=== PATIENT | male | born 1985 | race Caucasian/White ===

== ENCOUNTER 2023-10-26 07:38 | Inpatient (IN) | payer SELFPAY ==
[2023-10-26 07:42] VITALS: BP 151/98; PULSE 105; RESP 18; TEMP 36.6; O2SAT 97; BMI 24.7
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
[2023-10-26 08:58] LABS: Basophils # 0.1 10^3/uL (0.0-0.1); Basophils % 0.8 %; Eosinophils # 0.1 10^3/uL (0.0-0.8); Eosinophils % 1.2 %; Hematocrit 51.8 % (37-53); Lymphocytes # 1.7 10^3/uL (0.8-4.8); Lymphocytes % 14.7 %; Mean Corpuscular HGB Conc 34.2 g/dL (30-55); Mean Corpuscular Hemoglobin 30.4 pg (27-33); Monocytes # 0.6 10^3/uL (0.2-0.9); Monocytes % 5.2 %; Neutrophils # 9.19 10^3/uL (1.8-7.7); Neutrophils % 77.8 %; Nucleated Red Blood Cells % 0 %; Platelet Count 260 10^3/cmm (157-399); Red Blood Count 5.82 10^6/uL (3.85-5.65); Red Cell Distribution Width 13.5 % (12.1-15.1); White Blood Count 11.82 10^3/uL (3.29-11.43)
[2023-10-26 09:15] LABS: Alanine Aminotransferase 26 U/L (0-41); Albumin Level 4.6 g/dL (3.5-5.2); Alkaline Phosphatase 68 U/L (40-130); Aspartate Amino Transferase 34 U/L (0-40); Blood Urea Nitrogen 15 mg/dL (6-20); Calcium 9.5 mg/dL (8.5-10.5); Carbon Dioxide 20 mmol/L (22-29); Chloride 97 mmol/L (98-107); Creatinine Clr Calc Pharmacy 113.2165; Globulin 3.3 g/dL (1.3-4.6); Glomerular Filtration Rate 108.2 mL/min (90-130); Glucose 85 mg/dL (65-115); Osmolality Calculated 276 mOsm/kg (285-295); Sodium 133 mmol/L (136-145); Total Bilirubin 0.8 mg/dL (0.15-1.2); Total Protein 7.9 g/dL (6.6-8.7)
[2023-10-26 09:18] LABS: Acetaminophen < 5.0 ug/mL (10-30); Alcohol Level < 10 mg/dL (0-10); Anion Gap 19.9 (5-19); Potassium 3.9 mmol/L (3.5-5.1); Salicylate < 0.3 mg/dL (3-10)
[2023-10-26 09:49] LABS: Add Urine Microscopic? NO; Charge for UA Resulting for Rev
[2023-10-26 09:54] LABS: Bilirubin Urine Neg (Negative); Blood Urine Neg (Negative); Glucose Urine UA Norm (Normal); Ketones Urine 2+ (Negative); Leukocyte Esterase Urine Negative (Negative); Nitrate Urine Negative (Negative); Protein Urine Neg (Negative); Urine Appearance Clear (CLEAR); Urine Color Yellow (Yellow); Urobilinogen Urine Norm (Negative); pH Urine 7 (5-7)
[2023-10-26 10:02] LABS: Amphetamines Screen Urine Negative (Negative); Barbiturates Screen Urine Negative (Negative); Benzodiazepines Screen Urine Negative (Negative); Cocaine Screen Urine Negative (Negative); Opiate Screen Urine Negative (Negative); PCP Screen Urine Negative (Negative); THC Screen Urine Negative (Negative)
--- NOTE | 2023-10-26 10:06 | ECG_ITS ---
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 Measurements Intervals [place] Rate: 88 P: 48 W[place]: 139 QRS: 72 QRSD: 77 T: 56 QT: 362 QTc: 438 Interpretive Statements SINUS RHYTHM Compared to ECG 09/26/2017 14:51:42 No significant changes Electronically Signed On 10-26-2023 15:24:50 CDT by Kyle Mitchell M.D. [email or web address]
[2023-10-26 10:50] VITALS: BP 145/90; PULSE 74; RESP 20; TEMP 36.6; O2SAT 97
[2023-10-26 10:52] VITALS: BMI 24.7
[2023-10-26] MEDS: hyDROXYzine 25 mg Capsule 50 MG PO (11:24)
[2023-10-26] MEDS: nicotine 4 mg lozenge MUCOUS MEM ×3 (11:24→19:30)
[2023-10-26 14:00] VITALS: BP 118/76; PULSE 92; RESP 20; TEMP 36.8; O2SAT 98
[2023-10-26] MEDS: BuSPIRONE 10 mg Tablet PO (15:22)
[2023-10-26 20:02] VITALS: BP 138/84; PULSE 80; RESP 18; O2SAT 97
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
[2023-10-27 06:00] VITALS: BP 113/70; PULSE 82; RESP 17; O2SAT 97
[2023-10-27] MEDS: nicotine 4 mg lozenge MUCOUS MEM ×6 (06:20→17:24)
[2023-10-27] MEDS: BuSPIRONE 10 mg Tablet PO ×2 (08:26→14:58)
[2023-10-27 14:00] VITALS: BP 118/81; PULSE 94; RESP 17; TEMP 36.7; O2SAT 96
[2023-10-27 15:53] VITALS: BP 113/70; PULSE 82; RESP 17; O2SAT 97
--- NOTE | 2023-10-27 16:00 | P.NPUDS_ITS ---
Diagnoses at Discharge Discharge Diagnosis (1) Depression: Status: Acute Qualifiers: Active/Remission status: currently active Depression Type: major depressive disorder Major depression episode severity: severe Major depression recurrence: recurrent Psychotic features: without psychotic features Qualified Code(s): F33.2 - Major depressive disorder, recurrent severe without psychotic features (2) Generalized anxiety disorder: Status: Acute (3) History of traumatic brain injury: Status: Acute (4) History of posttraumatic stress disorder (PTSD): Status: Acute Reason for Visit Reason for Visit: SI Involuntary Hold Information 96 Hour Hold: 96 Hour Involuntary Admission: No Mental Status Exam MSE Comments: This is a a well-nourished well-developed white male in hospital scrubs with adequate grooming and eye contact. No abnormal movements except for mild psychomotor agitation. Cooperative with exam in mild distress. Speech was normal rate and volume. Mood described as a anxious but better with medication restarted, affect congruent. Thought process organized. Thought content: Patient denied any current suicidal or homicidal ideations, there were no delusions reported or noted, he denied any auditory or visual hallucinations. Attention and concentration appeared intact and memory was mostly reliable but none were formally tested. He is alert and oriented x3. Insight and judgment are limited, impulse control is limited. Discharge Data Studies Completed and Pending: Laboratory Results WBC 11.82 10^3/uL (3. 29-11.43) H 10/26/23 08:52 RBC 5.82 10^6/uL (3.8 5-5.65) H 10/26/23 08:52 Hgb 17.70 g/dL (11.27 -16.99) H 10/26/23 08:52 Hct 51.8 % (37-53) 10/26/23 08:52 MCV 89.0 fl (82-101) 10/26/23 08:52 MCH 30.4 pg (27-33) 10/26/23 08:52 MCHC 34.2 g/dL (30-55) 10/26/23 08:52 RDW 13.5 % (12.1-15.1 ) 10/26/23 08:52 Plt Count 260 10^3/cmm (157 -399) 10/26/23 08:52 MPV 10.0 fL (7.4-10.4 ) 10/26/23 08:52 Neut % (Auto) 77.8 % 10/26/23 08:52 Lymph % (Auto) 14.7 % 10/26/23 08:52 [place] % (Auto) 5.2 % 10/26/23 08:52 Eos % (Auto) 1.2 % 10/26/23 08:52 Baso % (Auto) 0.8 % 10/26/23 08:52 Neut # (Auto) 9.19 10^3/uL (1.8 -7.7) H 10/26/23 08:52 Lymph # (Auto) 1.7 10^3/uL (0.8- 4.8) 10/26/23 08:52 [place] # (Auto) 0.6 10^3/uL (0.2- 0.9) 10/26/23 08:52 Eos # (Auto) 0.1 10^3/uL (0.0- 0.8) 10/26/23 08:52 Baso # (Auto) 0.1 10^3/uL (0.0- 0.1) 10/26/23 08:52 Nucleated RBC % (a uto) 0 % 10/26/23 08:52 Nucleated RBCs # 0.0 /100WBC 10/26/23 08:52 Sodium 133 mmol/L (136-1 45) L 10/26/23 08:52 Potassium 3.9 mmol/L (3.5-5 .1) 10/26/23 08:52 Chloride 97 mmol/L (98-107 ) L 10/26/23 08:52 Carbon Dioxide 20 mmol/L (22-29) L 10/26/23 08:52 Anion Gap 19.9 (5-19) H 10/26/23 08:52 BUN 15 mg/dL (6-20) 10/26/23 08:52 Creatinine 0.8 mg/dL (0.7-1. 2) 10/26/23 08:52 GFR Calculation 108.2 mL/min (90- 130) 10/26/23 08:52 Glucose 85 mg/dL (65-115) 10/26/23 08:52 Calculated Osmolal ity 276 mOsm/kg (285- 295) L 10/26/23 08:52 Calcium 9.5 mg/dL (8.5-10 .5) 10/26/23 08:52 Total Bilirubin 0.8 mg/dL (0.15-1 .2) 10/26/23 08:52 AST 34 U/L (0-40) 10/26/23 08:52 ALT 26 U/L (0-41) 10/26/23 08:52 Alkaline Phosphata se 68 U/L (40-130) 10/26/23 08:52 Total Protein 7.9 g/dL (6.6-8.7 ) 10/26/23 08:52 Albumin 4.6 g/dL (3.5-5.2 ) 10/26/23 08:52 Globulin 3.3 g/dL (1.3-4.6 ) 10/26/23 08:52 Urine Color Yellow (Yellow) 10/26/23 09:30 Urine Appearance Clear (CLEAR) 10/26/23 09:30 Urine pH 7 (5-7) 10/26/23 09:30 Ur Specific Gravit y 1.010 (1.005-1.0 30) 10/26/23 09:30 Urine Protein Neg (Negative) 10/26/23 09:30 Urine Glucose (UA) Norm (Normal) 10/26/23 09:30 Urine Ketones 2+ (Negative) H 10/26/23 09:30 Urine Blood Neg (Negative) 10/26/23 09:30 Urine Nitrate Negative (Negati ve) 10/26/23 09:30 Urine Bilirubin Neg (Negative) 10/26/23 09:30 Urine Urobilinogen Norm mg/dL (Negat radha) 10/26/23 09:30 Ur Leukocyte Le ase Negative (Negati ve) 10/26/23 09:30 Salicylates < 0.3 mg/dL (3-10 ) L 10/26/23 08:52 Urine Opiates Scre en Negative ng/mL (N egative) 10/26/23 09:30 Acetaminophen < 5.0 ug/mL (10-3 0) L 10/26/23 08:52 Ur Barbiturates Sc reen Negative ng/mL (N egative) 10/26/23 09:30 Ur Phencyclidine S crn Negative ng/mL (N egative) 10/26/23 09:30 Ur Amphetamines Sc reen Negative ng/mL (N egative) 10/26/23 09:30 U Benzodiazepines Scrn Negative ng/mL (N egative) 10/26/23 09:30 Urine Cocaine Scre en Negative ng/mL (N egative) 10/26/23 09:30 U Marijuana (THC) Screen Negative ng/mL (N egative) 10/26/23 09:30 Ethyl Alcohol < 10 mg/dL (0-10) 10/26/23 08:52 Vitals: Last Vital Signs Temp 98.1 F 10/27/23 14:00 Pulse 82 10/27/23 15:53 Resp 17 10/27/23 15:53 BP 113/70 10/27/23 15:53 Pulse Ox 97 10/27/23 15:53 O2 Del Method Room Air 10/27/23 06:00 Discharge Plan Discharge Patient Disposition: Home Condition: Stable Prescriptions: New buspirone 10 mg Tablet 10 mg PO 0900,1500 30 Days Qty: 60 1RF nicotine (polacrilex) 4 mg Lozenge 4 mg mucous membrane Q2H PRN (Reason: Nicotine Cravings) 30 Days Qty: 110 1RF No Action No Known Home Medications Discharge Orders: Discharge Order (Routine); Ordered 10/27/23 Ordered By: Choco Rosado Referrals: [facility] [Outside] - 10/30/23 8:30 am (Initial assessment for services with Ralph Mauricio) Wilson Agee MD [Staff Physician] - Discharge Diet: Regular Discharge Activity: Resume usual activity Patient Instructions: Generalized Anxiety Disorder, Depression (DC), PTSD (Post Traumatic Stress Disorder) (DC), Help Prevent Suicide (DC), Suicide Prevention (DC), Opioid Safety, Pain Management Discharge Attestations NPU Time Spent in Discharge Care*: less than 30 min Specific Discharge Activities: Specific discharge activities: educating patient, discussing with nurse outreach case manager/social workers/dc planners, documenting/other paperwork and evaluating patient/reviewing data Coding Level of Care Code Acute Code for g Fwd Diagnoses Depression F33.2 Active/Remission status: currently active Depression Type: major depressive disorder Major depression episode severity: severe Major depression recurrence: recurrent Psychotic features: without psychotic features Generalized anxiety disorder F41.1 History of traumatic brain injury Z87.820 History of posttraumatic stress disorder (PTSD) Z86.59
== END 2023-10-27 17:40 | disposition home or self-care (01) | DRG 885 ==
LOC: ER 10:12 → NP 10:30
PROVIDERS: Admitting Provider Psychiatry & Neurology Psychiatry; Emergency Provider Emergency Medicine; Visit Provider Psychiatry & Neurology Psychiatry
DX: F33.2 Major depressive disorder, recurrent severe without psychotic features (principal); F41.1 Generalized anxiety disorder; F43.10 Post-traumatic stress disorder, unspecified; F90.9 Attention-deficit hyperactivity disorder, unspecified type; F43.9 Reaction to severe stress, unspecified
CPT/HCPCS: 36415; 80053; 80306; 80307; 81003; 85025; 93005; 97150; 97165; 99285